=== PATIENT | female | born 1945 | race Caucasian/White ===

== ENCOUNTER 2023-04-12 09:18 | Emergency (ER) | payer MEDICARE, OTHER, SELFPAY ==
[2023-04-12 09:26] VITALS: BP 163/90
[2023-04-12 09:59] LABS: Glucose - Point of Care 427 mg/dl (70-99)
[2023-04-12 10:01] VITALS: BMI 31.7
--- NOTE | 2023-04-12 10:18 | ED.GENMED ---
History of Present Illness
General
Chief Complaint: Heart Rate Problem
Source: patient
Exam Limitations: none
Time Seen by Provider: 04/12/23 10:06
Travel History
Have you had any contact with someone who has COVID-19?: No
Do you have any symptoms of coronavirus? Fever > 100 degrees, chills, cough, shortness of breath, sore throat, loss of taste or smell, muscle aches, or headache?: No
History of Present Illness
History of Present Illness:
77-year-old female presents with generalized fatigue and intermittent racing heart. The fatigue really progressed since last 2 weeks. She states is under the stress of the move. She felt as though her exhaustion was from the move. She also notes
that her Fitbit was telling her heart rate was very variable ranging from in the 60s to 110. This could be while at rest. She notes excessive thirst and urination recently. She denies weight gain however she has been losing weight. She notes
some occasional leg cramps. No other complaints at this time
Phy Exam
Physical Exam
Physical Exam:
General: Well-appearing female no acute respiratory distress
HEENT: Normocephalic atraumatic neck
Heart: Regular rate and rhythm no audible murmurs
Lungs: Clear to auscultation bilaterally no
Extremities: No cyanosis or edema skin: Warm no rash
Course
Orders/Labs/Results
Orders:
Orders
04/12/23 09:30
EKG [Electrocardiogram (*1)] Urgent
Reason for Study: Palpitations
EKG- Treatment ONCE
04/12/23 10:08
Complete Blood Count/With Diff Urgent
Comprehensive Metabolic Panel Urgent
Glycohemoglobin (HgbA1c) Urgent
TSH Reflex To Free T4 Urgent
Comment: ADD ON
04/12/23 10:16
Add On- LAB Urgent
Tests Added?: tsh reflex to t4
0.9% Sodium Chloride 1000 ml [Nss] 1,000 ml IV BOLUS
04/12/23 12:21
Diabetes Management by Nurse Practitioner Urgent
Consulting Provider: Marcella Gutierrez
Was provider already notified?: Yes
04/12/23 12:22
Add On- LAB Urgent
Tests Added?: Hgb A1C
04/12/23 12:29
METFORMIN HCl [Glucophage] 500 mg PO NOW STA
04/12/23 12:34
Bedside Glucose Monitoring-ONCE As Directed
04/12/23 12:35
Bedside Glucose Monitoring As Directed
Frequency: AC&HS
04/12/23 13:00
GlipiZIDE [Glucotrol] 5 mg PO DAILY
04/12/23 17:00
GlipiZIDE [Glucotrol] 5 mg PO BID@0800,1700
METFORMIN HCl [Glucophage] 500 mg PO BID@0800,1700
Abnormal Lab Results
04/12/23 04/12/23 04/12/23
09:57 10:08 12:39
MCH 33.4 H pg
(27.0-31.0)
MPV 10.5 H fL
(7.4-10.4)
Abs Immat Gran (auto) 0.1 H 10^3/uL
(0-0.05)
Absolute Lymphs (auto) 1.0 L 10^3/uL
(1.2-3.4)
Immature Gran % 0.7 H %
(0-0.5)
Neutrophils % 78.7 H %
(42.2-75.2)
Lymphocytes % 13.8 L %
(20.5-51.1)
Sodium 131 L mmol/L
(135-145)
Chloride 96 L mmol/L
(98-107)
Carbon Dioxide 19 L mmol/L
(22-30)
BUN 19 H mg/dl
(7-17)
Glucose 422 H mg/dl
(70-99)
Alkaline Phosphatase 171 H U/L
(38-126)
POC Glucose 427 H mg/dl 376 H mg/dl
(70-99) (70-99)
04/12/23 10:08
04/12/23 10:08
Vital Signs
Initial and Last Documented VS:
Initial Vital Signs
Temp Pulse Resp BP Pulse Ox
97.6 F 104 16 163/90 98
04/12/23 09:26 04/12/23 09:26 04/12/23 09:26 04/12/23 09:26 04/12/23 09:26
Last Documented Vital Signs
Temp Pulse Resp BP Pulse Ox
97.6 F 78 19 140/61 98
04/12/23 09:26 04/12/23 12:15 04/12/23 12:15 04/12/23 12:00 04/12/23 09:26
MDM/Problems Addressed
Differential Diagnosis Includes:
Fatigue, excessive thirst and urination. Consider electrolyte abnormality versus hyperglycemia versus anemia
Will check labs. EKG showed sinus rhythm. Fingerstick blood glucose is 427. Thyroid studies added. Fluids ordered
*Critical Care Note
Total Time (30-74mins, 75-104mins- exclusive of procedures): Not Applicable
Update Note
Update Note:
Serum glucose was elevated at 422. She was given a liter of fluid. Rechecked and is below 400. Spoke to nurse practitioner for diabetes education. She came down and consulted on the patient and recommended a treatment regimen including metformin
and glipizide. She prescribed his medicines as well to test trips and gave patient a glucometer. Patient stable for d/c.
ED Attending Note
-
Portions of this chart may have been created with voice recognition software.� Occasional wrong word or��sound alike� substitutions may have occurred due to the inherent limitations of voice recognition software.
Discharge Plan
Departure
Patient Disposition: Home (Routine Discharge)
Date of Disposition: 04/12/23
Time of Disposition: 13:46
Patient with high blood pressure during this ER visit?: No
Discharge Problem:
Diabetes
Prescriptions:
New
metformin 500 mg Tablet
500 mg PO BID@0800,1700 Qty: 60 0RF
(DME) Contour Next Test Strips Strip
Qty: 60 0RF
Rx Instructions:
Pt testing twice a day
glipizide 5 mg Tablet
5 mg PO BID@0800,1700 Qty: 60 0RF
(DME) lancets [Microlet Lancet] Misc
Qty: 60 0RF
Rx Instructions:
Pt testing twice a day
No Action
Balance Of Nature
3 cap PO DAILY
Buffered Vitamin C
1 tbsp PO DAILY
Referrals:
Terrell Merrill PA-C [Family Provider] -
Activity Restrictions/Additional Instructions:
Please take medication as prescribed. Please follow-up with your family doctor. Return if worse otherwise
Interventions
Interventions:
*Risk Screen - Suicide Last Done: 04/12/23 09:26
*General Assessment Last Done: 04/12/23 09:26
*Neglect/Abuse Screening Last Done: 04/12/23 09:26
*ED COVID-19 Vaccine History Last Done: 04/12/23 10:02
ED- Cardiac Assessment Last Done: 04/12/23 10:03
ED- Pulmonary Assessment Last Done: 04/12/23 10:03
[2023-04-12] MEDS: NSS 1000 IV (10:19)
[2023-04-12 10:20] LABS: % Basophils 0.8 % (0-2); % Eosinophils 0.1 % (0-6); % Immature Granulocytes 0.7 % (0-0.5); % Lymphocytes 13.8 % (20.5-51.1); % Monocytes 5.9 % (1.7-9.3); % Neutrophils 78.7 % (42.2-75.2); Absolute Basophils 0.1 10^3/uL (0-0.2); Absolute Immature Granulocytes 0.1 10^3/uL (0-0.05); Absolute Monocytes 0.4 10^3/uL (0.1-0.6); Absolute Neutrophils 5.7 10^3/uL (1.4-6.5); Hematocrit 41.3 % (37.0-47.0); Hemoglobin 14.7 g/dL (12.0-16.0); Mean Corp Hgb Conc. 35.6 g/dL (33.0-37.0); Mean Corpuscular Hgb 33.4 pg (27.0-31.0); Mean Corpuscular Volume 93.9 fL (81.0-99.0); Mean Platelet Volume 10.5 fL (7.4-10.4); Nucleated Red Blood Cells % 0 %; Platelet Count 220 10^3/uL (130-400); Red Cell Dist. Width 11.9 % (11.5-14.5); White Blood Cell Count 7.3 10^3/uL (4.8-10.8)
[2023-04-12 10:32] LABS: ALT (SGPT) 20 U/L (0-35); AST (SGOT) 20 U/L (14-36); Albumin 4.6 g/dl (3.5-5.0); Alkaline Phosphatase 171 U/L (38-126); Blood Urea Nitrogen 19 mg/dl (7-17); Calcium 10.1 mg/dl (8.4-10.2); Carbon Dioxide 19 mmol/L (22-30); Chloride 96 mmol/L (98-107); Estimated Creatinine Clearance 63 ml/min; Glucose 422 mg/dl (70-99); Potassium 4.3 mmol/L (3.5-5.1); Sodium 131 mmol/L (135-145); Total Bilirubin 0.9 mg/dl (0.2-1.3); Total Protein 7.3 g/dl (6.3-8.2); eGFR > 60.00
[2023-04-12 11:27] VITALS: BP 147/73
[2023-04-12 12:00] VITALS: BP 140/61
[2023-04-12 12:02] LABS: TSH Reflex To Free T4 3.74 uIU/ml (0.47-4.68)
--- NOTE | 2023-04-12 12:24 | PN.DE.MGMTRT ---
Insulin Management
- -
04/12/2023: Diabetes Management Consult
77-year-old female p/w generalized fatigue, intermittent racing heart, excessive thirst and urination recently. Pt seen in the ED with her sister who is diabetic at the bedside. Pt denies weight gain, however, she has been losing weight, has lost
~16lbs in 2 weeks. States she was notified of being diabetic 8 yrs ago, prior to knee surgery, where her A1C was abnormal, and managed to bring it down by changing her diet.
Glucose on admission>400, Cr 0.7, eGFR>60, A1C pending, not on any diabetes medications. Glucose has come down to 376 after 1L IVF.
Discussed with pt and sister about T2DM dx given uncontrolled blood sugar and pending A1C that is likely elevated. Discussed meds and pt is receptive to oral diabetes regimen. Will start Metformin 500mg BID and glipizide 5mg BID.
Accucheks ACHS, 1800 ADA diet, low corrective insulin with meals
Plan of care d/w ED team.
Diabetes History
- -
Type of Diabetes: 2
Pre-Admission Diabetes Regimen
04/12/23
10:08
Creatinine 0.9
Insulin Pump Settings
IP Diabetes Regimen
04/12/23 04/12/23
09:57 10:08
Glucose 422 H
POC Glucose 427 H
Patient Education
[2023-04-12 12:53] LABS: Glucose - Point of Care 376 mg/dl (70-99)
[2023-04-12] MEDS: GLUCOPHAGE 500 MG PO (13:12)
[2023-04-12] MEDS: GLUCOTROL 5 MG PO (13:12)
--- NOTE | 2023-04-12 13:56 | PN.DE ---
Diabetes Education
- -
04/12/2023 Diabetes Education
Met with Kaylee and her sister at the bedside in ED for glucose monitor instructions. Current A1C pending. Recalls being told she was Diabetic prirot to knee surgery 8 yrs ago, where her A1C was abnormal, and managed to bring it down by changing her
diet.
Discussed average blood sugar of 350, diabetes related short and penitentiary complications, life style modification and self management at home.
Provided with Contour Next EZ glucometer, instructions with good return demonstration, result 376 mg/dl before lunch.
Discussed testing pattern and expected results and information marked in the take home booklet. Discussed and reviewed importance of reducing CHO intake, being active and checking BS to assess food/medication effect on his BS. Encourage physical
activity and benefit of losing weight.
Discussed OP DSME classes and encouraged to call office and register.
Will need RX for test strips and lancets for the Contour Next EZ, testing 2x/day at discharge.
Discussed plan of care including medications for management at home with ED- PA
[2023-04-12 14:01] VITALS: BP 138/67
[2023-04-12 14:55] LABS: Glycohemoglobin (HgbA1c) 14.9 % (4.0-5.6)
== END 2023-04-12 14:03 | disposition home or self-care (01) ==
LOC: EMR 09:18
PROVIDERS: EMERGENCY PHYSICIAN Emergency Medicine; FAMILY PHYSICIAN Physician Assistant Medical
DX: E11.9 Type 2 diabetes mellitus without complications (principal)
CPT/HCPCS: 99284; 96360; 80053; 82962; 83036; 84443; 85025; 93005

== ENCOUNTER → 2023-08-05 09:17 | Outpatient (REF) | payer MEDICARE, OTHER, SELFPAY | LOC: RCS 09:17 | PROVIDERS: ATTENDING PHYSICIAN Internal Medicine; FAMILY PHYSICIAN Physician Assistant Medical | DX: R94.31 Abnormal electrocardiogram [ECG] [EKG] (principal); E78.2 Mixed hyperlipidemia; E11.59 Type 2 diabetes mellitus with other circulatory complications | CPT/HCPCS: 93306 ==